=== PATIENT | female | born 1995 | race Hispanic/Latino ===

== ENCOUNTER 2020-02-18 15:54 | Emergency (ER) | payer SELFPAY ==
[~2020-02-18] VITALS: Ht 165.1 cm; Wt 108.9 kg
[2020-02-18] MEDS ORDERED: KETOROLAC TROMETHAMINE 60 MG/2 ML VIAL IM ONE (17:30)
[2020-02-18] MEDS ORDERED: NAPROXEN250 MG PO (18:45)
[2020-02-18] MEDS ORDERED: CYCLOBENZAPRINE5 MG PO (18:45)
== END 2020-02-18 18:55 | disposition home or self-care (01) ==
LOC: ER 16:30
DX: S16.1XXA Strain of muscle, fascia and tendon at neck level, initial encounter (principal); S39.012A Strain of muscle, fascia and tendon of lower back, initial encounter; M79.601 Pain in right arm; R51.9 Headache, unspecified; V43.62XA Car passenger injured in collision with other type car in traffic accident, initial encounter; Y92.488 Other paved roadways as the place of occurrence of the external cause
CPT/HCPCS: 72110; 81025; 99283; J1885

== ENCOUNTER 2020-02-26 18:56 | Emergency (ER) | payer SELFPAY ==
[~2020-02-26] VITALS: Ht 165.1 cm; Wt 108.9 kg
[~2020-02-26 18:56] MED LIST: CYCLOBENZAPRINE5 MG PO; NAPROXEN250 MG PO
[2020-02-26 19:35] LABS: CLARITY,URINE HAZY (CLEAR); COLOR,URINE YELLOW (YELLOW); PREGNANCY TEST, URINE POSITIVE (NEGATIVE)
[2020-02-26 19:36] LABS: KETONES,URINE NEGATIVE (NEGATIVE); LEUKOCYTE ESTERASE ,URINE NEGATIVE (NEGATIVE); NITRITE,URINE NEGATIVE (NEGATIVE); PROTEIN,URINE DIPSTICK TRACE (NEGATIVE); URINE UROBILINOGEN 1 mg/dL (0.2 - 1)
[2020-02-26 19:40] LABS: BACTERIA,URINE FEW /HPF; EPITHELIAL CELLS,URINE MODERATE /LPF
[2020-02-26 19:47] VITALS: BP 123/76
== END 2020-02-26 19:58 | disposition home or self-care (01) ==
LOC: ER 19:20
DX: Z32.01 Encounter for pregnancy test, result positive (principal); R10.32 Left lower quadrant pain
CPT/HCPCS: 36415; 81001; 81025; 84702; 99283

== ENCOUNTER → 2020-07-25 | Day surgery (SDC) | payer OTHER ==
[~2020-07-25] MED LIST changes: +BUPIVACAINE HCL 0.5% INJ 30 ML VIAL INJ ONE; +CEFAZOLIN SOD 1 GM/NS 50ML 100 ML IV ONE; +DEXAMETHASONE SOD PHOS INJ 4 MG/ML VIAL ONE; +FENTANYL CITRATE/PF 100MCG/2 ML INJ ONE; +IBUPROFEN 800MG/ 200ML 200 ML IV ONE; +LIDOCAINE HCL 2% LOCAL INJ 5 ML SDV VIAL INJ ONE; +MIDAZOLAM HCL 2 MG/2 ML VIAL ONE; +ONDANSETRON HCL INJ 2MG/ML 2ML 2 MG/ML VIAL ONE; +POVIDONE IODINE 0.05% 0.05 % ML PO ONE; +PROPOFOL IV EMULSION 10 MG/ML 20 ML VIAL ONE; +SEVOFLURANE INHAL SOLN 250 ML PEN BTL ONE; +TYLENOL # 31 EA PO
[2020-07-25 14:30] VITALS: BP 112/74
== END | disposition home or self-care (01) ==
LOC: OR 09:36
PROVIDERS: ATTEND Specialist
DX: S82.61XA Displaced fracture of lateral malleolus of right fibula, initial encounter for closed fracture (principal); S93.421A Sprain of deltoid ligament of right ankle, initial encounter; E66.9 Obesity, unspecified; W50.0XXA Accidental hit or strike by another person, initial encounter; Y92.838 Other recreation area as the place of occurrence of the external cause; Z01.812 Encounter for preprocedural laboratory examination; Z20.822 Contact with and (suspected) exposure to COVID-19; Z86.16 Personal history of COVID-19
CPT/HCPCS: 27792; 76000; 81025; C1713 ×6; J0690; J1100; J2001; J2250; J2405; J2704; J3010; J3590; U0002